=== PATIENT | male | born 1950 | race Caucasian/White ===

== ENCOUNTER → 2017-03-08 | Outpatient (CLI) | payer OTHER ==
[~2017-03-08] VITALS: Ht 170.2 cm; Wt 83.9 kg
[~2017-03-08] MED LIST: ANORO ELLIPTA1 EACH IH; ASPIR 8181 M1 PO; CEFTIN500 MG PO; COMBIVENT RESPIM4 GM IH; FINASTERIDE5 MG PO; GLUCOPHAGE1000 MG PO; LYRICA200 MG PO; METFORMIN HCL1000 MG PO; OXYCODONE HCL15 MG PO; OXYCODONE HCL20 M1 PO; PROAIR RESPICL90 MCG IH; PROSCAR5 MG PO; REMERON30 M2 PO; ZOCOR40 MG PO
[2017-03-08 09:36] LABS: POINT-OF-CARE METER ID UU14174212
== END | disposition home or self-care (01) ==
LOC: OPR 07:51 → EDSTATUS 09:00
PROVIDERS: Internal Medicine Pulmonary Disease
PROC: 0BBJ3ZX Excision of Left Lower Lung Lobe, Percutaneous Approach, Diagnostic (ICD-10-PCS; principal; 2017-03-08)
DX: C34.32 Malignant neoplasm of lower lobe, left bronchus or lung (principal)
CPT/HCPCS: 71010; 77012; 82948; 88305; 88341 TC; 88342 TC; J3010